=== PATIENT | female | born 1960 | race Caucasian/White ===

== ENCOUNTER 2019-01-13 11:18 | Emergency (ER) | payer OTHER ==
[~2019-01-13] VITALS: Ht 160 cm; Wt 49.9 kg
[2019-01-13 12:27] LABS: URINE BILIRUBIN NEGATIVE (Negative); URINE BLOOD NEGATIVE (Negative); URINE CLARITY CLEAR; URINE COLOR YELLOW; URINE GLUCOSE-RANDOM* NEGATIVE (Negative); URINE KETONES NEGATIVE (Negative); URINE LEUKOCYTES-REFLEX NEGATIVE (Negative); URINE NITRITE-REFLEX NEGATIVE (Negative); URINE PROTEIN (DIPSTICK) NEGATIVE (Negative); URINE SPECIFIC GRAVITY <= 1.005 (1.005-1.035); URINE UROBILINOGEN 0.2 E.U./dl (0.2-1.0)
[2019-01-13] MEDS ORDERED: CELEBREX 200 M200 M1 PO (12:46)
--- NOTE | 2019-01-13 13:46 | EKG ---
[address] [address] [place] [address] ELECTROCARDIOGRAM REPORT Name: SYLVAINARMANDO Room #: GWEN Gomes#: [id number] Admission: 01/13/19 Attend Phys: Discharge: Date of : 64 Report #: [id number] THIS REPORT FOR: //name// [facility] ED Test Date: 2019-01-13 Test Time: 11:34:45 Pat Name: ARMANDO NARAYAN Department: Room: Gender: F [employer]ator: JESSE : 1960 Requested By: Donell Melgoza Order Number: [id number] MD: Johann Parker Measurements Intervals [place] Rate: 85 P: 71 NC: 141 QRS: -7 QRSD: 78 T: 18 QT: 362 QTc: 431 Interpretive Statements Sinus rhythm Borderline low voltage, extremity leads No previous ECG available for comparison Electronically Signed On 01-13-2019 13:46:30 CDT by Johann Parker [email or web address] <ELECTRONICALLY SIGNED> By: Johann Parker MD 01/13/19 1346 1134 1134 Johann Parker MD /EPI
[2019-01-13 14:12] LABS: ABSOLUTE NEUTROPHILS 4.4 thou/uL (1.4-8.2); BASOPHILS 0.6 % (0.0-2.0); EOSINOPHILS 3.3 % (0.0-3.0); LYMPHOCYTES 33.8 % (24.0-44.0); MCH 29.8 pg (26.0-34.0); MCHC 34.3 g/dL (28.0-37.0); MONOCYTES 6.7 % (1.0-8.0); PLATELET COUNT 221 thou/uL (150-400); POLYS 55.6 % (36.0-66.0); RBC 4.36 mil/uL (4.20-5.00); RDW 13.2 % (10.5-14.5); WBC 7.9 thou/uL (4.0-11.0)
[2019-01-13 14:23] LABS: CALCIUM 9.2 mg/dL (8.5-10.1); CREATININE 0.8 mg/dL (0.6-1.0); POTASSIUM 3.9 mmol/L (3.5-5.1)
[2019-01-13 14:30] LABS: ALBUMIN 3.2 g/dL (3.4-5.0); TOTAL BILIRUBIN 0.4 mg/dL (<0.1-1.0); TOTAL PROTEIN 7.2 g/dL (6.4-8.2)
[2019-01-13] MEDS ORDERED: PROTONIX40 M1 PO (14:48)
[2019-01-13 15:11] VITALS: BP 106/58
== END 2019-01-13 15:11 | disposition home or self-care (01) ==
LOC: ER 11:18
PROVIDERS: Emergency Medicine
DX: R10.11 Right upper quadrant pain (principal); R19.7 Diarrhea, unspecified; M06.9 Rheumatoid arthritis, unspecified; F17.210 Nicotine dependence, cigarettes, uncomplicated; Z88.0 Allergy status to penicillin